=== PATIENT | female | born 1985 | race Caucasian/White ===

== ENCOUNTER → 2022-09-19 10:28 | Outpatient (BNVA) | payer BC, SELFPAY | PROVIDERS: Visit Provider Internal Medicine Cardiovascular Disease | DX: R00.1 Bradycardia, unspecified (principal) | CPT/HCPCS: 93005 ==

== ENCOUNTER 2022-10-10 08:17 | Outpatient (CLI) | payer BC, SELFPAY ==
--- NOTE | 2022-10-10 08:30 | USCV_ITS ---
Leann Doherty Age: 37 Gender: F : 1985 Exam Date: 10/10/2022 08:36 Ordering Phys: Nataliia Isbell MD ([email or web address]) Technologist: Modesto George Exam Location: [facility] [place] Indication: Bradycardia BP: 134 / 84 HR: 53 Rhythm: Sinus Technical Quality: Adequate MEASUREMENTS (Male / Female) Normal Values 2D ECHO LVOT Diameter 2.0 cm LV Ejection Fraction MOD 2C 68.4 % LV Ejection Fraction 2C AL 67.7 % LA Diameter 3.4 cm LA Width 4.0 cm LA Height 5.9 cm RA Width 3.6 cm RA Height 5.3 cm Aorta at Sinotubular Diameter 1.9 cm IVC Diameter 2.0 cm M-MODE Aortic Annulus Diameter 2.8 cm LA Ao Ratio MM 1.3 MV E Point Septal Separation 0.4 cm DOPPLER AV Peak Velocity 147.0 cm/s LVOT Peak Velocity 122.0 cm/s AV Area Cont Eq vti 2.6 cm squared AV Area Cont Eq pk 2.6 cm squared MV Area PHT 3.9 cm squared Mitral E to A Ratio 1.8 MV E' Velocity 57.0 cm/s Mitral E to MV E' Ratio 8.0 Mitral E to LV E' Lateral Ratio 6.9 Mitral E to LV E' Septal Ratio 9.6 TR Peak Velocity 294.8 cm/s TR Peak Gradient 34.8 mmHg TR Mean Velocity 219.1 cm/s TR Mean Gradient 21.9 mmHg TR Velocity Time Integral 84.1 cm Right Atrial Pressure 3.0 mmHg Pulmonary Artery Systolic Pressu 37.8 mmHg PV Peak Velocity 101.7 cm/s RV Acceleration Time 0.1 s RV Ejection Time 0.3 s RV AcT/ET 0.3 FINDINGS Left Ventricle Normal left ventricular size, systolic function and wall thickness, with no regional wall motion abnormalities. Left ventricular ejection fraction is estimated at 65 %. Normal diastolic function. Right Ventricle Normal right ventricular size and systolic function. RVSP could not be calculated due to incomplete tricuspid regurgitation velocity profile. Right Atrium Normal right atrial size. Left Atrium Normal left atrial size. Mitral Valve Thickened mitral valve. No mitral valve stenosis. Trace mitral valve regurgitation. Aortic Valve Structurally normal trileaflet aortic valve. No aortic valve stenosis. No aortic valve regurgitation. Tricuspid Valve Structurally normal tricuspid valve. No tricuspid valve stenosis. Trace to mild tricuspid valve regurgitation. Pulmonic Valve Structurally normal pulmonic valve. No pulmonary valve stenosis. Trace pulmonary valve regurgitation. Pericardium No pericardial effusion. Aorta Normal size aortic root and proximal ascending aorta. IVC Normal IVC dimension with >50% respiratory change of the inferior vena cava. CONCLUSIONS 1. Normal left ventricular size, systolic function and wall thickness, with no regional wall motion abnormalities. Left ventricular ejection fraction is estimated at 65 %. Normal diastolic function. 2. Normal right ventricular size and systolic function. 3. Trace to mild tricuspid valve regurgitation. 4. No prior similar studies to compare. Nataliia Isbell MD (Electronically Signed) Final Date: 10 October 2022 12:49 S
== END 2022-10-10 08:18 | disposition home or self-care (01) ==
PROVIDERS: PCP Family Medicine; Visit Provider Internal Medicine Cardiovascular Disease
DX: R00.1 Bradycardia, unspecified (principal); R06.02 Shortness of breath
CPT/HCPCS: 93306

== ENCOUNTER 2022-12-05 20:00 | Outpatient (CLI) | payer BC, SELFPAY | END 2022-12-05 20:01 | disposition home or self-care (01) | LOC: SLEEP 12-06 06:17 | PROVIDERS: PCP Family Medicine; Visit Provider Internal Medicine Cardiovascular Disease | DX: G47.10 Hypersomnia, unspecified (principal); G47.33 Obstructive sleep apnea (adult) (pediatric); G47.36 Sleep related hypoventilation in conditions classified elsewhere; R06.83 Snoring | CPT/HCPCS: 95811 ==

== ENCOUNTER 2023-04-02 20:00 | Outpatient (CLI) | payer BC, SELFPAY | END 2023-04-02 20:01 | disposition home or self-care (01) | LOC: SLEEP 04-03 05:38 | PROVIDERS: PCP Family Medicine; Visit Provider Family Medicine | DX: G47.33 Obstructive sleep apnea (adult) (pediatric) (principal) | CPT/HCPCS: 95811 ==

== ENCOUNTER 2024-03-13 11:39 | Emergency (ER) | payer BC, SELFPAY ==
[2024-03-13 12:06] VITALS: BP 172/72; PULSE 51; RESP 17; TEMP 36.8; O2SAT 97; BMI 42.9
--- NOTE | 2024-03-13 13:21 | ECG_ITS ---
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 Measurements Intervals [place] Rate: 41 P: 11 CA: 332 QRS: 102 QRSD: 153 T: 77 QT: 533 QTc: 443 Interpretive Statements SINUS BRADYCARDIA WITH FIRST DEGREE AV BLOCK WITH OCCASIONAL premature atrial contractions RIGHT AXIS DEVIATION [QRS AXIS > 100] INTRAVENTRICULAR CONDUCTION DELAY [130+ ms QRS DURATION] No previous ECG available for comparison Electronically Signed On 03-13-2024 16:03:03 DOCK CLERK by Deepak Mccray M.D. [id number]
[2024-03-13 13:42] LABS: Basophils % 0.5 %; Eosinophils # 0.1 10^3/uL (0.0-0.8); Eosinophils % 1.6 %; Hematocrit 40.8 % (36-47); Lymphocytes # 1.5 10^3/uL (0.8-4.8); Lymphocytes % 19.1 %; Mean Corpuscular HGB Conc 31.9 g/dL (30-55); Mean Corpuscular Hemoglobin 29.1 pg (27-33); Mean Corpuscular Volume 91.5 fl (85-98); Mean Platelet Volume 10.3 fL (7.4-10.4); Monocytes # 0.4 10^3/uL (0.2-0.9); Monocytes % 5.1 %; Neutrophils # 5.57 10^3/uL (1.8-7.7); Neutrophils % 73.6 %; Nucleated Red Blood Cells % 0 %; Platelet Count 267 10^3/cmm (157-399); Red Blood Count 4.46 10^6/uL (3.85-5.65); Red Cell Distribution Width 13.3 % (12.1-15.1); White Blood Count 7.58 10^3/uL (3.29-11.43)
[2024-03-13 14:00] LABS: HCG, Serum Qual Negative (Negative)
[2024-03-13 14:04] VITALS: BP 110/79; PULSE 36; RESP 15; O2SAT 99
--- NOTE | 2024-03-13 14:14 | W.ED.DIZZY ---
HPI - Dizziness General: Chief Complaint: Dizziness Stated Complaint: whizzing, tireness Time Seen by Provider: 03/13/24 13:45 History of Present Illness: HPI Narrative: Patient presents to the ER after feeling lightheaded dizzy. Patient does have a low heart rate but she has never had a lightheaded dizziness before. Patient stated when she got up at work and walked down the [place] she felt tired and sluggish and lightheaded. Patient states when she sat down and rested symptoms went away she went back to normal. Patient has seen [facility] Wheat before for her bradycardia. But is never caused the symptoms. Related Data Home Medications Medication Instructions Recorded Confirmed cetirizine 10 mg tablet (Zyrtec) 10 mg PO DAILY 09/19/22 03/13/24 dapsone 5 % topical gel 1 applic topical BID 09/19/22 03/13/24 hydrocortisone 0.5 % topical cream 1 applic topical BID PRN Itching 09/19/22 03/13/24 ketoconazole 2 % topical cream 1 applic topical DAILY 09/19/22 03/13/24 ketotifen fumarate 0.025 % (0.035 1 drp ophthalmic (eye) BID 09/19/22 03/13/24 %) eye drops (Zaditor) multivitamin 1 tab PO DAILY 09/19/22 03/13/24 omega-3 fatty acids 1,000 mg 1,000 mg PO DAILY 09/19/22 03/13/24 capsule estradiol 1 mg tablet 1 mg PO DAILY 12/19/22 03/13/24 fluticasone propionate 50 1 spray intranasal BID 03/13/24 03/13/24 mcg/actuation nasal spray,suspension Allergies Allergy/AdvReac Type Severity Reaction Status Date / Time pseudoephedrine Allergy Mild ALGY-Hives Verified 09/18/23 10:39 codeine AdvReac Mild ADR-Vomitin Verified 09/18/23 10:39 g minocycline AdvReac Mild ADR-Vomitin Verified 09/18/23 10:39 g Review of Systems General: Reports: 10 or more systems reviewed and unremarkable except in HPI and below PFSH ED PFSH: Medical History Obesity Bradycardia Chronic dermatitis Hyperhidrosis Eczema History of hypertension Family History Mother Hypertension Hyperlipidemia Father Hypertension Diabetes Brother Hypertension Sister Hypertension Social History Smoking and tobacco/nicotine status: never used tobacco/nicotine Physical Exam Const: COMMON NORMALS: no acute distress, average body habitus, patient oriented x3, no limitations, healthy appearing, alert and well nourished HENMT: COMMON NORMALS: normocephalic, atraumatic, hearing grossly normal bilaterally, external ears normal and moist oral mucous membranes HEAD & SCALP: normocephalic and atraumatic EXTERNAL EAR: Yes external ears normal Neck/C-Spine: COMMON NORMALS: no JVD Chest: COMMONS NORMALS: normal inspection of the chest and normal palpation of entire chest wall Resp: COMMON NORMALS: normal respiratory effort, No retractions, No use of accessory muscles and clear to auscultation bilaterally AUSCULTATION: clear to auscultation bilaterally Cardio: COMMON NORMALS: no JVD, regular rate, regular rhythm, S1 normal heart sound present, S2 normal heart sound present, No gallops present (Cardio), No clicks present (Cardio), No murmurs present (Cardio) and No rub (Cardio) RATE: regular rate RHYTHM: regular rhythm HEART SOUNDS: S1 normal heart sound present and S2 normal heart sound present GI: COMMON NORMALS: Normal to inspection, nondistended, normoactive bowel sounds present, Soft to palpation, non-tender, No hepatosplenomegaly present and no masses PALPATION: Yes Soft to palpation and Yes No hepatosplenomegaly present Neuro: COMMON NORMALS: patient oriented x3 SENSORIUM/ORIENTATION: Yes alert Course Vital Signs: Vital signs: Vital Signs Temperature 98.2 F 03/13/24 12:06 Pulse Rate 36 L 03/13/24 14:04 Respiratory Rate 15 03/13/24 14:04 Blood Pressure 110/79 03/13/24 14:04 Pulse Oximetry 99 03/13/24 14:04 Oxygen Delivery Me thod Room Air 03/13/24 14:04 MDM - Dizziness Medical Decision Making Patient's exam is essentially unremarkable, blood work, troponin, EKG, urinalysis all showed no acute changes, these results was discussed with the patient. Patient be referred back to [facility] for symptomatic bradycardia. Medical Records I reviewed the patient's medical records. Lab Data I reviewed the patient's lab results. 03/13/24 13:35 03/13/24 13:35 Laboratory Results WBC 7.58 10^3/uL (3.29-11.43) 03/13/24 13:35 RBC 4.46 10^6/uL (3.85-5.65) 03/13/24 13:35 Hgb 13.00 g/dL (11.27-16.99) 03/13/24 13:35 Hct 40.8 % (36-47) 03/13/24 13:35 MCV 91.5 fl (85-98) 03/13/24 13:35 MCH 29.1 pg (27-33) 03/13/24 13:35 MCHC 31.9 g/dL (30-55) 03/13/24 13:35 RDW 13.3 % (12.1-15.1) 03/13/24 13:35 Plt Count 267 10^3/cmm (157-399) 03/13/24 13:35 MPV 10.3 fL (7.4-10.4) 03/13/24 13:35 Neut % (Auto) 73.6 % 03/13/24 13:35 Lymph % (Auto) 19.1 % 03/13/24 13:35 Petroleum % (Auto) 5.1 % 03/13/24 13:35 Eos % (Auto) 1.6 % 03/13/24 13:35 Baso % (Auto) 0.5 % 03/13/24 13:35 Neut # (Auto) 5.57 10^3/uL (1.8-7.7) 03/13/24 13:35 Lymph # (Auto) 1.5 10^3/uL (0.8-4.8) 03/13/24 13:35 Petroleum # (Auto) 0.4 10^3/uL (0.2-0.9) 03/13/24 13:35 Eos # (Auto) 0.1 10^3/uL (0.0-0.8) 03/13/24 13:35 Baso # (Auto) 0.0 10^3/uL (0.0-0.1) 03/13/24 13:35 Nucleated RBC % (auto) 0 % 03/13/24 13:35 Nucleated RBCs # 0.0 /100WBC 03/13/24 13:35 Sodium 135 mmol/L (136-145) L 03/13/24 13:35 Potassium 4.4 mmol/L (3.5-5.1) 03/13/24 13:35 Chloride 99 mmol/L (98-107) 03/13/24 13:35 Carbon Dioxide 25 mmol/L (22-29) 03/13/24 13:35 Anion Gap 15.4 (5-19) 03/13/24 13:35 BUN 9 mg/dL (6-20) 03/13/24 13:35 Creatinine 0.7 mg/dL (0.5-0.9) 03/13/24 13:35 GFR Calculation 93.6 mL/min (90-130) 03/13/24 13:35 Glucose 90 mg/dL (65-115) 03/13/24 13:35 Calculated Osmolality 278 mOsm/kg (285-295) L 03/13/24 13:35 Calcium 9.0 mg/dL (8.5-10.5) 03/13/24 13:35 Total Bilirubin 0.5 mg/dL (0.15-1.2) 03/13/24 13:35 AST 18 U/L (0-32) 03/13/24 13:35 ALT 16 U/L (0-33) 03/13/24 13:35 Alkaline Phosphatase 98 U/L (35-105) 03/13/24 13:35 Total Protein 7.4 g/dL (6.6-8.7) 03/13/24 13:35 Albumin 4.0 g/dL (3.5-5.2) 03/13/24 13:35 Globulin 3.4 g/dL (1.3-4.6) 03/13/24 13:35 TSH 1.99 uIU/mL (0.27-4.20) 03/13/24 13:35 HCG, Qual Negative (Negative) 03/13/24 13:35 Urine Color Yellow (Yellow) 03/13/24 14:37 Urine Appearance Cloudy (CLEAR) A 03/13/24 14:37 Urine pH 5.5 (5-7) 03/13/24 14:37 Ur Specific [place] 1.010 (1.005-1.030) 03/13/24 14:37 Urine Protein Negative (Negative) 03/13/24 14:37 Urine Glucose (UA) Negative (Normal) 03/13/24 14:37 Urine Ketones 1+ (Negative) H 03/13/24 14:37 Urine Blood Negative (Negative) 03/13/24 14:37 Urine Nitrate Negative (Negative) 03/13/24 14:37 Urine Bilirubin Negative (Negative) 03/13/24 14:37 Urine Urobilinogen 0.2 mg/dL (Negative) 03/13/24 14:37 Ur Leukocyte Esterase Negative (Negative) 03/13/24 14:37 Amorphous Sediment Not Reportable 03/13/24 14:37 All radiology interpretation(s) finalized by discharge Discharge Plan Discharge Patient Disposition: Home Clinical Impression: Bradycardia Condition: Stable Prescriptions: No Action dapsone 5 % gel 1 applic topical BID Rx Instructions: rub in gently and completely hydrocortisone 0.5 % cream 1 applic topical BID PRN (Reason: Itching) ketoconazole 2 % cream 1 applic topical DAILY ketotifen fumarate [Zaditor] 0.025 % (0.035 %) drops 1 drp ophthalmic (eye) BID Rx Instructions: administer at least 8 hours apart cetirizine [Zyrtec] 10 mg tablet 10 mg PO DAILY multivitamin Tablet 1 tab PO DAILY omega-3 fatty acids 1,000 mg capsule 1,000 mg PO DAILY estradiol 1 mg tablet 1 mg PO DAILY Rx Instructions: off 1 week; repeat cycle fluticasone propionate 50 mcg/actuation spray,suspension 1 spray INTRANASAL BID Discharge Orders: Discharge ED (Routine); Ordered 03/13/24 Ordered By: Michael Yepez Referrals: Delores Guerra MD [Primary Care Provider] - 1 week Patient Instructions: Bradycardia (ED) Activity Restrictions/Additional Instructions: The test performed running today in ER was essentially unremarkable. They did not show any acute cause of your bradycardia. Your heart rate did dip down into the 30s on several occasions. Please follow-up with [facility] of cardiology for further evaluation and testing. Coding Level of Care Code ED Manager Emergency Department for [facility]
[2024-03-13 14:15] LABS: Alanine Aminotransferase 16 U/L (0-33); Alkaline Phosphatase 98 U/L (35-105); Anion Gap 15.4 (5-19); Aspartate Amino Transferase 18 U/L (0-32); Blood Urea Nitrogen 9 mg/dL (6-20); Carbon Dioxide 25 mmol/L (22-29); Chloride 99 mmol/L (98-107); Creatinine Clr Calc Pharmacy 134.4868; Globulin 3.4 g/dL (1.3-4.6); Glomerular Filtration Rate 93.6 mL/min (90-130); Glucose 90 mg/dL (65-115); Osmolality Calculated 278 mOsm/kg (285-295); Potassium 4.4 mmol/L (3.5-5.1); Sodium 135 mmol/L (136-145); Thyroid Stimulating Hormone 1.99 uIU/mL (0.27-4.20); Total Bilirubin 0.5 mg/dL (0.15-1.2); Total Protein 7.4 g/dL (6.6-8.7)
[2024-03-13 15:00] VITALS: BP 161/73; PULSE 45; RESP 14; O2SAT 97
[2024-03-13 15:07] LABS: Bilirubin Urine Negative (Negative); Blood Urine Negative (Negative); Glucose Urine UA Negative (Normal); Ketones Urine 1+ (Negative); Leukocyte Esterase Urine Negative (Negative); Nitrate Urine Negative (Negative); Protein Urine Negative (Negative); Urine Appearance Cloudy (CLEAR); Urine Color Yellow (Yellow); Urobilinogen Urine 0.2 mg/dL (Negative); pH Urine 5.5 (5-7)
[2024-03-13 15:12] LABS: Add Urine Microscopic? YES; Bacteria Urine 3+ /hpf; Hyaline Casts Urine 4.52 /lpf; RBC Urine 21-50 /hpf (0-2); Squamous Epithelial Cell Urine 21-50 /hpf (0-5); WBC Urine 0-5 /hpf (0-5)
[2024-03-13 15:26] LABS: Mucus Urine TRACE /hpf; UA Slide Review UA Slide Review Perf
[2024-03-13 15:33] VITALS: BP 140/90; PULSE 48; RESP 14; O2SAT 97
== END 2024-03-13 15:27 | disposition home or self-care (01) ==
PROVIDERS: Emergency Medicine; Emergency Provider Emergency Medicine; PCP Family Medicine
DX: R00.1 Bradycardia, unspecified (principal); I10 Essential (primary) hypertension
CPT/HCPCS: 80053; 81001; 84443; 84703; 85025; 93005; 99284

== ENCOUNTER 2024-03-19 07:55 | Emergency (ER) | payer BC, SELFPAY ==
[2024-03-19] VITALS (21 sets, daily range): BP systolic 112–172; BP diastolic 43–98; PULSE 40–67; RESP 12–16; TEMP 36.9; O2SAT 94–99; BMI 44.6
--- NOTE | 2024-03-19 08:25 | ECG_ITS ---
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 Measurements Intervals [place] Rate: 50 P: 263 VA: 312 QRS: 106 QRSD: 153 T: 66 QT: 492 QTc: 449 Interpretive Statements SINUS BRADYCARDIA WITH FIRST DEGREE AV BLOCK WITH FREQUENT VENTRICULAR PREMATURE COMPLEXES RIGHT AXIS DEVIATION [QRS AXIS > 100] RIGHT BUNDLE BRANCH BLOCK [120+ ms QRS DURATION, UPRIGHT V1, 40+ ms S IN I/aVL/V4/V5/V6] Compared to ECG 03/13/2024 13:56:54 Ventricular premature complex(es) now present Right bundle-branch block now present Atrial premature complex(es) no longer present Intraventricular conduction delay no longer present Electronically Signed On 03-20-2024 10:25:35 PARKING LOT SIGNALER by Grady Scruggs M.D. [email or web address]
--- NOTE | 2024-03-19 08:25 | XR_ITS ---
WS: [id number] Exam: XR chest 1V portable [id number] Date/Time of Exam: 03/19/2024 8:25 AM Reason For Exam: chest pain No priors. Lungs are clear and fully expanded. Normal cardiomediastinal silhouette and regional bony elements. S mall battery pack superimposes the mediastinum. XR/XR chest 1V portable [id number] IMPRESSION: 1. No acute cardiopulmonary finding.
--- NOTE | 2024-03-19 08:25 | ED_ITS ---
Documented by User: NESHA Worley 03/19/24 10:28 HPI - Arrhythmia/Palpitations 2 General: Chief Complaint: Arrhythmia/Palpitations Stated Complaint: heart monitor reg irregular HB Time Seen by Provider: 03/19/24 08:00 Source: patient Mode of arrival: ambulatory Limitations: no limitations History of Present Illness: Patient is a 38-year-old female with a history of bradycardia over the past year or so here after she was called by Dr. Walker yesterday evening requesting she come to the emergency department. Patient recently had a Holter monitor placed due to bradycardia, dizziness, lightheadedness. She was alerted by cardiology yesterday evening that her monitor was showing sinus pauses and of a possible heart block. Patient states she was not able to make it to the emergency department yesterday evening so came this morning. He arrives in no acute distress. Vital signs are stable apart from bradycardia. Her pressure is 154/72. Her only medication at this time is estradiol given to her following her hysterectomy. PMH also significant for sleep apnea. MD complaint: palpitations Onset (ago): month(s) Associated symptoms: Reports pre-syncope and other (dizzy/lightheaded) Related Data Home Medications Medication Instructions Recorded Confirmed cetirizine 10 mg tablet (Zyrtec) 10 mg PO DAILY 09/19/22 03/19/24 hydrocortisone 0.5 % topical cream 1 applic topical BID PRN Itching 09/19/22 03/19/24 ketoconazole 2 % topical cream 1 applic topical DAILY 09/19/22 03/19/24 multivitamin 1 tab PO DAILY 09/19/22 03/19/24 estradiol 1 mg tablet 1 mg PO DAILY 12/19/22 03/19/24 fluticasone propionate 50 1 spray intranasal BID 03/13/24 03/19/24 mcg/actuation nasal spray,suspension Allergies Allergy/AdvReac Type Severity Reaction Status Date / Time pseudoephedrine Allergy Mild ALGY-Hives Verified 03/17/24 10:06 codeine AdvReac Mild ADR-Vomitin Verified 03/17/24 10:06 g minocycline AdvReac Mild ADR-Vomitin Verified 03/17/24 10:06 g Review of Systems 2 Const: Denies: fever(s), chills, body aches, fatigue or malaise Card: Reports: palpitations, lightheadedness and pre-syncope; Denies: chest pain Resp: Reports: dyspnea (with exertion) GI: Denies: abdominal pain : Denies: flank pain or dysuria Musc: Denies: extremity pain, extremity swelling, joint pain or joint swelling Skin/Breast: Denies: rash Neuro: Reports: dizziness; Denies: headache(s), numbness in extremities, weakness in extremities or sensory changes PFSH ED 2 PFSH: Medical History Obesity Bradycardia Chronic dermatitis Hyperhidrosis Eczema History of hypertension Family History Mother Hypertension Hyperlipidemia Father Hypertension Diabetes Brother Hypertension Sister Hypertension Social History Smoking and tobacco/nicotine status: never used tobacco/nicotine Physical Exam 2 Const: COMMON NORMALS: no acute distress, patient oriented x3, no limitations, healthy appearing, alert and well nourished GENERAL APPEARANCE: cooperative Chest: COMMONS NORMALS: normal inspection of the chest and normal palpation of entire chest wall Resp: COMMON NORMALS: normal respiratory effort and clear to auscultation bilaterally AUSCULTATION: clear to auscultation bilaterally Cardio: COMMON NORMALS: regular rhythm and Peripheral pulses 2+ throughout RATE: bradycardic RHYTHM: regular rhythm PERIPHERAL PULSES: Peripheral pulses 2+ throughout Extremity: COMMON NORMALS: no clubbing, cyanosis or edema, no calf tenderness and no pedal edema GENERAL: Yes normal exam except as noted Neuro: COMMON NORMALS: patient oriented x3 SENSORIUM/ORIENTATION: Yes alert Course 2 Consultations: Consultation #1: Dr. Walker-recommending admit to hospitalist service and he will consult; reviewed EKG Consultation #2: Dr. Gallardo-will accept admission Vital Signs: Vital signs: Vital Signs Temperature 98.4 F 03/19/24 08:12 Pulse Rate 50 L 03/19/24 08:12 Respiratory Rate 16 03/19/24 08:12 Blood Pressure 154/72 03/19/24 08:12 Pulse Oximetry 96 03/19/24 08:12 Oxygen Delivery Me thod Room Air 03/19/24 08:12 MDM - Arrhythmia/Palpitations Medical Decision Making Patient is a 38-year-old female here for symptomatic bradycardia. Holter monitor, according to her health analyst, showing periods of sinus pause. He is recommending admission for further testing which could include an echocardiogram and stress test. Questions whether she might eventually need a pacemaker. I spoke to hospitalist Dr. Gallardo who will admit. Dr. Feng is aware of patient will place admit orders. Medical Records I reviewed the patient's medical records. Lab Data I reviewed the patient's lab results. 03/19/24 08:36 03/19/24 08:36 Radiology Impressions Chest X-Ray 03/19/24 08:25 IMPRESSION: 1. No acute cardiopulmonary finding. Laboratory Results WBC 7.61 10^3/uL (3.29-11.43) 03/19/24 08:36 RBC 4.47 10^6/uL (3.85-5.65) 03/19/24 08:36 Hgb 13.10 g/dL (11.27-16.99) 03/19/24 08:36 Hct 40.4 % (36-47) 03/19/24 08:36 MCV 90.4 fl (85-98) 03/19/24 08:36 MCH 29.3 pg (27-33) 03/19/24 08:36 MCHC 32.4 g/dL (30-55) 03/19/24 08:36 RDW 13.4 % (12.1-15.1) 03/19/24 08:36 Plt Count 253 10^3/cmm (157-399) 03/19/24 08:36 MPV 10.6 fL (7.4-10.4) H 03/19/24 08:36 Neut % (Auto) 66.1 % 03/19/24 08:36 Lymph % (Auto) 22.5 % 03/19/24 08:36 [place] % (Auto) 8.3 % 03/19/24 08:36 Eos % (Auto) 2.4 % 03/19/24 08:36 Baso % (Auto) 0.4 % 03/19/24 08:36 Neut # (Auto) 5.04 10^3/uL (1.8-7.7) 03/19/24 08:36 Lymph # (Auto) 1.7 10^3/uL (0.8-4.8) 03/19/24 08:36 [place] # (Auto) 0.6 10^3/uL (0.2-0.9) 03/19/24 08:36 Eos # (Auto) 0.2 10^3/uL (0.0-0.8) 03/19/24 08:36 Baso # (Auto) 0.0 10^3/uL (0.0-0.1) 03/19/24 08:36 Nucleated RBC % (auto) 0 % 03/19/24 08:36 Nucleated RBCs # 0.0 /100WBC 03/19/24 08:36 Sodium 139 mmol/L (136-145) 03/19/24 08:36 Potassium 4.3 mmol/L (3.5-5.1) 03/19/24 08:36 Chloride 101 mmol/L (98-107) 03/19/24 08:36 Carbon Dioxide 26 mmol/L (22-29) 03/19/24 08:36 Anion Gap 16.3 (5-19) 03/19/24 08:36 BUN 12 mg/dL (6-20) 03/19/24 08:36 Creatinine 0.7 mg/dL (0.5-0.9) 03/19/24 08:36 GFR Calculation 93.6 mL/min (90-130) 03/19/24 08:36 Glucose 101 mg/dL (65-115) 03/19/24 08:36 Calculated Osmolality 288 mOsm/kg (285-295) 03/19/24 08:36 Calcium 9.5 mg/dL (8.5-10.5) 03/19/24 08:36 Total Bilirubin 0.6 mg/dL (0.15-1.2) 03/19/24 08:36 AST 20 U/L (0-32) 03/19/24 08:36 ALT 16 U/L (0-33) 03/19/24 08:36 Alkaline Phosphatase 93 U/L (35-105) 03/19/24 08:36 Troponin T Baseline 14 ng/L (0-10) H 03/19/24 08:36 NT-Pro-B Natriuret Pep 845 pg/mL (0-125) H 03/19/24 08:36 Total Protein 7.5 g/dL (6.6-8.7) 03/19/24 08:36 Albumin 4.0 g/dL (3.5-5.2) 03/19/24 08:36 Globulin 3.5 g/dL (1.3-4.6) 03/19/24 08:36 All radiology interpretation(s) finalized by discharge Discharge Plan Discharge Patient Disposition: Admitted As Inpatient Admit Provider: Asif Gallardo Clinical Impression: Bradycardia, Sinus pause, Dizziness Condition: Stable Coding Level of Care Code ED Health Analyst for Chg Fwd Documented by User: Nikko Feng DO 03/19/24 11:14 HPI - Arrhythmia/Palpitations 2 General: Chief Complaint: Arrhythmia/Palpitations Stated Complaint: heart monitor reg irregular HB Time Seen by Provider: 03/19/24 08:00 Related Data Home Medications Medication Instructions Recorded Confirmed cetirizine 10 mg tablet (Zyrtec) 10 mg PO DAILY 09/19/22 03/19/24 hydrocortisone 0.5 % topical cream 1 applic topical BID PRN Itching 09/19/22 03/19/24 ketoconazole 2 % topical cream 1 applic topical DAILY 09/19/22 03/19/24 multivitamin 1 tab PO DAILY 09/19/22 03/19/24 estradiol 1 mg tablet 1 mg PO DAILY 12/19/22 03/19/24 fluticasone propionate 50 1 spray intranasal BID 03/13/24 03/19/24 mcg/actuation nasal spray,suspension Allergies Allergy/AdvReac Type Severity Reaction Status Date / Time pseudoephedrine Allergy Mild ALGY-Hives Verified 03/17/24 10:06 codeine AdvReac Mild ADR-Vomitin Verified 03/17/24 10:06 g minocycline AdvReac Mild ADR-Vomitin Verified 03/17/24 10:06 g PFSH ED 2 PFSH: Medical History Obesity Bradycardia Chronic dermatitis Hyperhidrosis Eczema History of hypertension Family History Mother Hypertension Hyperlipidemia Father Hypertension Diabetes Brother Hypertension Sister Hypertension Social History Smoking and tobacco/nicotine status: never used tobacco/nicotine Course 2 Vital Signs: Vital signs: Vital Signs Temperature 98.4 F 03/19/24 08:12 Pulse Rate 50 L 03/19/24 08:12 Respiratory Rate 16 03/19/24 08:12 Blood Pressure 154/72 03/19/24 08:12 Pulse Oximetry 96 03/19/24 08:12 Oxygen Delivery Me thod Room Air 03/19/24 08:12 MDM - Arrhythmia/Palpitations Medical Decision Making Patient is a 38-year-old female here for symptomatic bradycardia. Holter monitor, according to her health analyst, showing periods of sinus pause. He is recommending admission for further testing which could include an echocardiogram and stress test. Questions whether she might eventually need a pacemaker. I spoke to hospitalist Dr. Gallardo who will admit. Dr. Feng is aware of patient will place admit orders. Chart reviewed and patient discussed with midlevel. Agree with assessment and plan. Lab Data 03/19/24 08:36 03/19/24 08:36 Radiology Impressions Chest X-Ray 03/19/24 08:25 IMPRESSION: 1. No acute cardiopulmonary finding. Laboratory Results WBC 7.61 10^3/uL (3.29-11.43) 03/19/24 08:36 RBC 4.47 10^6/uL (3.85-5.65) 03/19/24 08:36 Hgb 13.10 g/dL (11.27-16.99) 03/19/24 08:36 Hct 40.4 % (36-47) 03/19/24 08:36 MCV 90.4 fl (85-98) 03/19/24 08:36 MCH 29.3 pg (27-33) 03/19/24 08:36 MCHC 32.4 g/dL (30-55) 03/19/24 08:36 RDW 13.4 % (12.1-15.1) 03/19/24 08:36 Plt Count 253 10^3/cmm (157-399) 03/19/24 08:36 MPV 10.6 fL (7.4-10.4) H 03/19/24 08:36 Neut % (Auto) 66.1 % 03/19/24 08:36 Lymph % (Auto) 22.5 % 03/19/24 08:36 [place] % (Auto) 8.3 % 03/19/24 08:36 Eos % (Auto) 2.4 % 03/19/24 08:36 Baso % (Auto) 0.4 % 03/19/24 08:36 Neut # (Auto) 5.04 10^3/uL (1.8-7.7) 03/19/24 08:36 Lymph # (Auto) 1.7 10^3/uL (0.8-4.8) 03/19/24 08:36 [place] # (Auto) 0.6 10^3/uL (0.2-0.9) 03/19/24 08:36 Eos # (Auto) 0.2 10^3/uL (0.0-0.8) 03/19/24 08:36 Baso # (Auto) 0.0 10^3/uL (0.0-0.1) 03/19/24 08:36 Nucleated RBC % (auto) 0 % 03/19/24 08:36 Nucleated RBCs # 0.0 /100WBC 03/19/24 08:36 Sodium 139 mmol/L (136-145) 03/19/24 08:36 Potassium 4.3 mmol/L (3.5-5.1) 03/19/24 08:36 Chloride 101 mmol/L (98-107) 03/19/24 08:36 Carbon Dioxide 26 mmol/L (22-29) 03/19/24 08:36 Anion Gap 16.3 (5-19) 03/19/24 08:36 BUN 12 mg/dL (6-20) 03/19/24 08:36 Creatinine 0.7 mg/dL (0.5-0.9) 03/19/24 08:36 GFR Calculation 93.6 mL/min (90-130) 03/19/24 08:36 Glucose 101 mg/dL (65-115) 03/19/24 08:36 Calculated Osmolality 288 mOsm/kg (285-295) 03/19/24 08:36 Calcium 9.5 mg/dL (8.5-10.5) 03/19/24 08:36 Total Bilirubin 0.6 mg/dL (0.15-1.2) 03/19/24 08:36 AST 20 U/L (0-32) 03/19/24 08:36 ALT 16 U/L (0-33) 03/19/24 08:36 Alkaline Phosphatase 93 U/L (35-105) 03/19/24 08:36 Troponin T Baseline 14 ng/L (0-10) H 03/19/24 08:36 NT-Pro-B Natriuret Pep 845 pg/mL (0-125) H 03/19/24 08:36 Total Protein 7.5 g/dL (6.6-8.7) 03/19/24 08:36 Albumin 4.0 g/dL (3.5-5.2) 03/19/24 08:36 Globulin 3.5 g/dL (1.3-4.6) 03/19/24 08:36 Discharge Plan Discharge Patient Disposition: Admitted As Inpatient Admit Provider: Asif Gallardo Clinical Impression: Bradycardia, Sinus pause, Dizziness Condition: Stable Coding Level of Care Code ED Health Analyst for Jose Luis Barriga
[2024-03-19 08:51] LABS: Basophils % 0.4 %; Eosinophils # 0.2 10^3/uL (0.0-0.8); Eosinophils % 2.4 %; Hematocrit 40.4 % (36-47); Lymphocytes # 1.7 10^3/uL (0.8-4.8); Lymphocytes % 22.5 %; Mean Corpuscular HGB Conc 32.4 g/dL (30-55); Mean Corpuscular Hemoglobin 29.3 pg (27-33); Mean Corpuscular Volume 90.4 fl (85-98); Mean Platelet Volume 10.6 fL (7.4-10.4); Monocytes # 0.6 10^3/uL (0.2-0.9); Monocytes % 8.3 %; Neutrophils # 5.04 10^3/uL (1.8-7.7); Neutrophils % 66.1 %; Nucleated Red Blood Cells % 0 %; Platelet Count 253 10^3/cmm (157-399); Red Blood Count 4.47 10^6/uL (3.85-5.65); Red Cell Distribution Width 13.4 % (12.1-15.1); White Blood Count 7.61 10^3/uL (3.29-11.43)
[2024-03-19 09:11] LABS: Troponin(5th) Baseline 14 ng/L (0-10)
[2024-03-19 09:24] LABS: Alanine Aminotransferase 16 U/L (0-33); Alkaline Phosphatase 93 U/L (35-105); Aspartate Amino Transferase 20 U/L (0-32); Blood Urea Nitrogen 12 mg/dL (6-20); Calcium 9.5 mg/dL (8.5-10.5); Carbon Dioxide 26 mmol/L (22-29); Chloride 101 mmol/L (98-107); Globulin 3.5 g/dL (1.3-4.6); Glomerular Filtration Rate 93.6 mL/min (90-130); Glucose 101 mg/dL (65-115); NT Pro B Type Natriuretic Pept 845 pg/mL (0-125); Osmolality Calculated 288 mOsm/kg (285-295); Sodium 139 mmol/L (136-145); Total Bilirubin 0.6 mg/dL (0.15-1.2); Total Protein 7.5 g/dL (6.6-8.7)
[2024-03-19 09:27] LABS: Anion Gap 16.3 (5-19); Potassium 4.3 mmol/L (3.5-5.1)
--- NOTE | 2024-03-19 10:25 | ECG_ITS ---
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 Measurements Intervals [place] Rate: 43 P: 27 [place]: 280 QRS: 34 QRSD: 156 T: 92 QT: 535 QTc: 456 Interpretive Statements SINUS BRADYCARDIA WITH FIRST DEGREE AV BLOCK WITH OCCASIONAL SUPRAVENTRICULAR PREMATURE COMPLEXES INDETERMINATE AXIS RIGHT BUNDLE BRANCH BLOCK [120+ ms QRS DURATION, UPRIGHT V1, 40+ ms S IN I/aVL/V4/V5/V6] Compared to ECG 03/19/2024 08:05:13 Indeterminate axis now present Ventricular premature complex(es) no longer present Right-axis deviation no longer present Electronically Signed On 03-20-2024 10:36:32 [employer] by Grady Scruggs M.D. [email or web address]
[2024-03-19 11:10] LABS: Troponin 5 2HR 13.11 ng/L (0-10)
[2024-03-19 11:11] LABS: Troponin 5 2HR Delta -0.89 ABS# (0-10)
--- NOTE | 2024-03-19 11:49 | P.CONIM_ITS ---
<Statement entered by Grady Scruggs M.D - 03/19/24 13:31> Patient was evaluated and cared for in conjunction with an advanced practice practitioner.? I personally examined the patient and reviewed the chart and all pertinent data including imaging, telemetry, and laboratory results.? I discussed the patient in detail with the advanced practice practitioner.? Please see? their note for complete H&P, testing result and agreed upon plan of care for the patient. Briefly patient was seen in cardiology office yesterday and was placed on the event monitor as she has been having bradycardic episodes with symptoms of dizziness, lightheadedness and presyncope. Last night I was called by [facility] monitoring team about almost 7-second pause. I reviewed strip and patient has high degree AV block episodes with longest pause of 7.3 seconds. I called patient and she confirmed she was lightheaded and dizzy at the time. I recommended patient to come to the emergency room. Had detailed discussion about risks of not having inpatient evaluation and possible pacemaker placement. She showed understanding. Patient came to the emergency room this morning. Patient has family members with conduction abnormalities requiring pacemaker placement and dilated cardiomyopathy history. She has intermittent high degree AV block but is hemodynamically stable. Her symptoms have been worsening since last Friday. GENERAL: Patient is alert, awake and oriented x3. HEART: Regular S1 and S2 LUNGS: Clear to auscultate bilaterally. CENTRAL NERVOUS SYSTEM: Grossly nonfocal. EXTREMITIES: Lower extremities with out edema bilaterally. Assessment and Plan High degree AV block Symptomatic bradycardia Patient has high degree AV block with significant long pauses while she is awake. She is symptomatic with these. Will need permanent pacemaker placement. Over the weekend we do not have a physician available to place a permanent pacemaker. I did speak with Dr. Mccray who puts permanent pacemakers at our facility. On his review of patient, he feels she has higher risk of complications given her high BMI and recommends transfer to a center with surgical back up. Patient and family want to be transferred to [facility] in [place]. ER informed for contacting the hospital for possible transfer. Will also need echocardiogram prior to pacemaker placement. Thank you for involving us with care of this patient. Please call with questions. Documented by User: Leann Forman NP 03/19/24 11:56 Providers/Reason For Consult 2 Consulting Physician/Specialty*: Dr. Scruggs Reason for Consult*: Symptomatic bradycardia Attending Physician: Asif Gallardo Primary Care Provider: Delores Guerra MD History of Present Illness History of Present Illness Leann Doherty is a 38 year old female with with a past medical history of obstructive sleep apnea, bradycardia, history of hypertension. She has had a history of sinus bradycardia for at least a couple years but was asymptomatic up until several weeks ago. She states she started to get dizziness and lightheaded with almost syncopal episodes especially when she gets up. She states she tries to workout and walk on the treadmill but she can barely go past 2-1/2 mph until she gets severely short of breath tired and dizzy. She was seen on an outpatient basis in the cardiology clinic and an event monitor was placed. The event monitor had showed several episodes of up to 6-second pauses with third-degree heart block. Currently I can see she has 2 to 3-second pauses on my assessment. Overall underlying rate is around 50 on average. She is asymptomatic at this time. Her father required pacemaker as well. Review of Systems 2 Narrative: Consitutional: denies fever, chills, body aches, or changes in appetite, denies abnormal weight loss Eyes: Denies changes in vision Card: Denies chest pain, palpitations, irregular heart rhythm, edema, syncope, shortness of breath, orthopnea, leg pain with exertion Resp: Denies shortness of breath, denies hemoptysis, denies cough GI: denies abdominal pain, denies nausea or voimting, denies blood in stool : denies blood in urine, denies dysuria Musc: Denies extremity pain, denies limited range of motion or recent injury Skin: Denies rash, lesions, or wounds, denies changes to skin color Neuro: Denies nubmness in extremities, h/a, s/s of stroke James: Denies easy bruiding/bleeding All: Denies s/s of allergies Medications/Allergies Home Medications Medication Instructions Recorded Confirmed Last Taken Type cetirizine 10 mg tablet (Zyrtec) 10 mg PO DAILY 09/19/22 03/19/24 03/12/24 History hydrocortisone 0.5 % topical cream 1 applic topical BID PRN Itching 09/19/22 03/19/24 Unknown History ketoconazole 2 % topical cream 1 applic topical DAILY 09/19/22 03/19/24 Unknown History multivitamin 1 tab PO DAILY 09/19/22 03/19/24 03/12/24 History estradiol 1 mg tablet 1 mg PO DAILY 12/19/22 03/19/24 03/18/24 History fluticasone propionate 50 1 spray intranasal BID 03/13/24 03/19/24 Unknown History mcg/actuation nasal spray,suspension Allergies Allergy/AdvReac Type Severity Reaction Status Date / Time pseudoephedrine Allergy Mild ALGY-Hives Verified 03/17/24 10:06 codeine AdvReac Mild ADR-Vomitin Verified 03/17/24 10:06 g minocycline AdvReac Mild ADR-Vomitin Verified 03/17/24 10:06 g PFSH Acute 2 PFSH: Medical History Obesity Bradycardia Chronic dermatitis Hyperhidrosis Eczema History of hypertension Family History Mother Hypertension Hyperlipidemia Father Hypertension Diabetes Brother Hypertension Sister Hypertension Social History Smoking and tobacco/nicotine status: never used tobacco/nicotine Vitals/I&O/Wt Last Vital Signs Temp 98.4 F 03/19/24 08:12 Pulse 50 L 03/19/24 08:12 Resp 16 03/19/24 08:12 BP 154/72 03/19/24 08:12 Pulse Ox 96 03/19/24 08:12 O2 Del Method Room Air 03/19/24 08:12 Weight last 48 hrs Weight 260 lb Physical Exam 2 Narrative: General: No apparent distress, healthy appearing, well nourished HENMT: normoceophalic Eye: PERRL Neck: No carotid bruit bilaterally Muskuloskeletal: Full ROM Respiratory: Normal respiratory effort, clear to auscultation bilaterally throughout all lung david, no use of accessory muscles Cardio: No JVD, regular rate, bradycardia, S1 S2 normal, no murmurs, peripheral pulses 2+ throughout Extremities: Full ROM, normal, normal capillary refill, no cyanosis or edema Neuro: Alert and oriented x4, no focal motor deficits Psych: Affect normal, denies suicidal ideation, mental status grossly normal Skin: No rashes or lesions noted, no wounds Data 03/19/24 08:36 03/19/24 08:36 Other data: 08/18 CONCLUSION: 1. The baseline rhythm was found to be sinus bradycardia with an overall average heart rate of 49 beats per minute. There were a total of 21 ventricular ectopics and 3 supraventricular ectopics, comprising 0.03% and less than 0.01% respectively of the total heartbeats . 2. No significant pauses or bradycardias noted. 3. The symptom of chest discomfort and shortness of breath were found to be associated with sinus bradycardia with a heart rate of 59 and 52 respectively. 4. No similar previous studies are available for comparison A&P Assessment and plan (1) History of hypertension: (2) Bradycardia: (3) Sinus pause: Plan Patient has sinus bradycardia with up to 6-second pauses and some episodes of third-degree heart block. She needs a pacemaker.. At this time I have reviewed the patient's case with Dr. Scruggs who is going to see the patient as well. Dr. Scruggs spoke to Dr. Mccray. Due to the fact that we do not have CV surgery as backup for possible complications during pacemaker placement, it was decided patient would likely need to be transferred to another facility. Patient's family is requesting to be transferred to [place] for an ER to ER transfer. I did discuss this with NESHA Noriega as well. Patient and family are agreeable to this. Thank you, for allowing us to take care of this very pleasant 38 year old female. Coding Level of Care Code Acute Code for Chg Fwd Diagnoses History of hypertension Z86.79 Bradycardia R00.1 Sinus pause I45.5 Documented by User: Grady Scruggs M.D 03/19/24 13:32 Medications/Allergies Home Medications Medication Instructions Recorded Confirmed Last Taken Type cetirizine 10 mg tablet (Zyrtec) 10 mg PO DAILY 0503/19/24 03/12/24 History hydrocortisone 0.5 % topical cream 1 applic topical BID PRN Itching 09/19/22 03/19/24 Unknown History ketoconazole 2 % topical cream 1 applic topical DAILY 09/19/22 03/19/24 Unknown History multivitamin 1 tab PO DAILY 09/19/22 03/19/24 03/12/24 History estradiol 1 mg tablet 1 mg PO DAILY 12/19/22 03/19/24 03/18/24 History fluticasone propionate 50 1 spray intranasal BID 03/13/24 03/19/24 Unknown History mcg/actuation nasal spray,suspension Allergies Allergy/AdvReac Type Severity Reaction Status Date / Time pseudoephedrine Allergy Mild ALGY-Hives Verified 03/17/24 10:06 codeine AdvReac Mild ADR-Vomitin Verified 03/17/24 10:06 g minocycline AdvReac Mild ADR-Vomitin Verified 03/17/24 10:06 g PFSH Acute 2 PFSH: Medical History Obesity Bradycardia Chronic dermatitis Hyperhidrosis Eczema History of hypertension Family History Mother Hypertension Hyperlipidemia Father Hypertension Diabetes Brother Hypertension Sister Hypertension Social History Smoking and tobacco/nicotine status: never used tobacco/nicotine Data 03/19/24 08:36 03/19/24 08:36 A&P Assessment and plan (1) History of hypertension: (2) Bradycardia: (3) Sinus pause: Plan Patient has sinus bradycardia with up to 7-second pauses and episodes of high- degree heart block. She needs a pacemaker.. At this time I have reviewed the patient's case with Dr. Scruggs who is going to see the patient as well. Dr. Scruggs spoke to Dr. Mccray. Due to the fact that we do not have CV surgery as backup for possible complications during pacemaker placement, it was decided patient would likely need to be transferred to another facility. Patient's family is requesting to be transferred to [place] for an ER to ER transfer. I did discuss this with NESHA Noriega as well. Patient and family are agreeable to this. Thank you, for allowing us to take care of this very pleasant 38 year old female. Consult Attestations 2 Medical Necessity Statement: Care expected to cross 2 midnights. Coding Level of Care Code Acute Code for Chg Fwd Diagnoses History of hypertension Z86.79 Bradycardia R00.1 Sinus pause I45.5
--- NOTE | 2024-03-19 12:13 | P.HP_ITS ---
Providers/Chief Complaint 2 Admitting Physician: Asif Gallardo Primary Care Provider: Delores Guerra MD Chief Complaint: heart monitor reg irregular HB History of Present Illness 38-year-old lady with history of bradycardia, sleep apnea experienced lightheadedness, fatigue, shortness of breath last Friday, was set up with 3-day monitor tech, was called to come into the ER by cardiology last night due to finding of abnormal rhythm including sinus pauses, possible heart block. Review of Systems 2 Const: Reports: fatigue; Denies: fever(s), chills, body aches or malaise ENMT: Denies: throat pain Card: Reports: lightheadedness; Denies: chest pain or edema Resp: Denies: dyspnea, productive cough, change in phlegm color or hemoptysis GI: Denies: abdominal pain, nausea, vomiting, diarrhea, constipation, hematochezia or melena : Denies: flank pain, urinary frequency or hematuria Musc: Denies: back pain, joint swelling or joint redness Skin/Breast: Denies: rash or new lesions Neuro: Denies: headache(s) or confusion Medications/Allergies Home Medications Medication Instructions Recorded Confirmed Last Taken Type cetirizine 10 mg tablet (Zyrtec) 10 mg PO DAILY 09/19/22 03/19/24 03/12/24 History hydrocortisone 0.5 % topical cream 1 applic topical BID PRN Itching 09/19/22 03/19/24 Unknown History ketoconazole 2 % topical cream 1 applic topical DAILY 09/19/22 03/19/24 Unknown History multivitamin 1 tab PO DAILY 09/19/22 03/19/24 03/12/24 History estradiol 1 mg tablet 1 mg PO DAILY 12/19/22 03/19/24 03/18/24 History fluticasone propionate 50 1 spray intranasal BID 03/13/24 03/19/24 Unknown History mcg/actuation nasal spray,suspension Allergies Allergy/AdvReac Type Severity Reaction Status Date / Time pseudoephedrine Allergy Mild ALGY-Hives Verified 03/17/24 10:06 codeine AdvReac Mild ADR-Vomitin Verified 03/17/24 10:06 g minocycline AdvReac Mild ADR-Vomitin Verified 03/17/24 10:06 g PFSH Acute 2 PFSH: Medical History Obesity Bradycardia Chronic dermatitis Hyperhidrosis Eczema History of hypertension Family History Mother Hypertension Hyperlipidemia Father Hypertension Diabetes Brother Hypertension Sister Hypertension Social History Smoking and tobacco/nicotine status: never used tobacco/nicotine Vitals/I&O/Wt Last Vital Signs Temp 98.4 F 03/19/24 08:12 Pulse 50 L 03/19/24 08:12 Resp 16 03/19/24 08:12 BP 154/72 03/19/24 08:12 Pulse Ox 96 03/19/24 08:12 O2 Del Method Room Air 03/19/24 08:12 Weight last 48 hrs Weight 117.934 kg Physical Exam 2 Narrative: Accompanied by parents Const: COMMON NORMALS: patient oriented x3 and alert GENERAL APPEARANCE: c ooperative ORIENTATION/CONSCIOUSNESS: Yes awake HENMT: COMMON NORMALS: oropharynx normal Neck/C-Spine: COMMON NORMALS: no JVD Resp: COMMON NORMALS: normal respiratory effort and clear to auscultation bilaterally AUSCULTATION: clear to auscultation bilaterally Cardio: COMMON NORMALS: no JVD, regular rhythm, S1 normal heart sound present, S2 normal heart sound present and No murmurs present (Cardio) RHYTHM: a bnormal rhythm HEART SOUNDS: S1 normal heart sound present and S2 normal heart sound present GI: COMMON NORMALS: Normal to inspection, nondistended, normoactive bowel sounds present, Soft to palpation and non-tender PALPATION: Yes Soft to palpation Extremity: COMMON NORMALS: no joint enlargement and no pedal edema Neuro: COMMON NORMALS: patient oriented x3 and moves all extremities S ENSORIUM/ORIENTATION: Yes alert Skin: COMMON NORMALS: no rashes or lesions noted GENERAL SKIN EXAM: no rashes or lesions noted Data 03/19/24 08:36 03/19/24 08:36 A&P Assessment and plan (1) Bradycardia: Since Friday has been symptomatic with lightheadedness, fatigue, shortness of breath with exertion, with bradycardia history, was set up with monitor tech, with finding of significant pauses, heart block episodes, was asked to come into ER by her health practice manager. Reviewed vitals, CBC, CMP, EKG, chest x-ray, ER provider note, discussed with ER provider. TTE is requested. Pending cardiology consultation for high-grade symptomatic, risk of life-threatening arrhythmia, cardiology further considering stress testing, as well as consideration of permanent pacemaker. Monitor on telemetry with arrhythmia. Admission to ICU. Pacer pads. Check magnesium. Reviewed potassium is okay. Complete troponin EKG series. (2) Sinus pause: As above. (3) Dizziness: Likely secondary to bradycardia with heart block episodes. Bedrest for now. Telemetry monitoring. Additional assessment management as above. Plan TAJ: Nightly ASV CPAP. She brought her own machine Continue home estradiol. Attestations 2 Medical Necessity Statement*: Admission over 2 midnights anticipated for assessment and management of symptomatic bradycardia, heart block, further assessment for underlying possible reversible causes. and High MDM includes number and complexity of problems actively addressed during encounter and amount and/or complexity of data reviewed/ordered [ previous or external records, ordered lab(s)/test(s) and other healthcare professional discussion] as documented Diagnoses Bradycardia R00.1 Sinus pause I45.5 Dizziness R42
--- NOTE | 2024-03-19 13:49 | ECG_ITS ---
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 Measurements Intervals Harper Rate: 59 P: 23 IN: 263 QRS: 23 QRSD: 167 T: 81 QT: 481 QTc: 477 Interpretive Statements SINUS BRADYCARDIA WITH FIRST DEGREE AV BLOCK INDETERMINATE AXIS RIGHT BUNDLE BRANCH BLOCK [120+ ms QRS DURATION, UPRIGHT V1, 40+ ms S IN I/aVL/V4/V5/V6] SEPTAL MYOCARDIAL INFARCTION , OF INDETERMINATE AGE [40+ ms Q WAVE IN V1/V2] Compared to ECG 03/19/2024 09:53:58 Myocardial infarct finding now present Electronically Signed On 03-20-2024 10:34:49 [facility] by Grady Scruggs M.D. [email or web address]
[2024-03-19 14:42] LABS: Troponin 5 6HR 13.48 ng/L (0-10); Troponin 5 6HR Delta -0.52 ng/L (0-12)
[2024-03-19] MEDS: DOPamine drip 400 MG/250 ML PREMIX 13.27 MG IV (16:12)
[2024-03-19] MEDS: ondansetron 2 mg/ML SDV 2 mL 4 MG IVP (19:50)
[2024-03-19] MEDS: ibuprofen 800 mg tablet PO (20:20)
== END 2024-03-19 21:23 | disposition admitted as inpatient to this hospital (09) ==
LOC: ER 09:35 → ICU 11:14 → ER IP 12:54
PROVIDERS: Emergency Provider Physician Assistant; PCP Family Medicine
DX: R00.1 Bradycardia, unspecified (principal); I45.5 Other specified heart block; R42 Dizziness and giddiness; I10 Essential (primary) hypertension
CPT/HCPCS: 36415; 71045; 80053; 83880; 84484; 85025; 93005; 96365; 96375; 99285; J1265; J2405